=== PATIENT | female | born 1970 | race Caucasian/White ===

== ENCOUNTER → 2019-06-23 | Outpatient (CLI) | payer OTHER | END | disposition home or self-care (01) | LOC: PLD 13:06 → LAB SHORT 13:06 | DX: D04.61 Carcinoma in situ of skin of right upper limb, including shoulder (principal) | CPT/HCPCS: 88305 ==

== ENCOUNTER → 2020-05-30 | Outpatient (CLI) | payer OTHER | LOC: LAB SHORT 15:45 → PLD 15:45 | DX: N39.9 Disorder of urinary system, unspecified (principal) | CPT/HCPCS: 87077; 87086; 87186 ==

== ENCOUNTER → 2021-10-31 | Outpatient (CLI) | payer OTHER | END | disposition home or self-care (01) | LOC: PLD 12:17 → LAB SHORT 12:17 | DX: L81.8 Other specified disorders of pigmentation (principal) | CPT/HCPCS: 88305 ==

== ENCOUNTER 2024-04-20 12:19 | Day surgery (SDC) | payer OTHER ==
[~2024-04-20] VITALS: Ht 165.1 cm; Wt 89.4 kg
[~2024-04-20 12:19] MED LIST: Lactated Ringer's 1,000 ML IV ONE; Prozac40 MG PO; VALA500 PO; propofoL 50 ML IV ONE
[2024-04-20] MEDS ORDERED: Lactated Ringer's 1,000 ML IV ONE (14:26)
[2024-04-20 15:30] VITALS: BP 118/64
== END 2024-04-20 15:33 | disposition home or self-care (01) ==
LOC: ORSCSDS 12:19
PROVIDERS: Surgery
PROC: 0DJD8ZZ Inspection of Lower Intestinal Tract, Via Natural or Artificial Opening Endoscopic (ICD-10-PCS; principal; 2024-04-20 14:15)
DX: Z12.11 Encounter for screening for malignant neoplasm of colon (principal); K57.30 Diverticulosis of large intestine without perforation or abscess without bleeding; K64.8 Other hemorrhoids; F32.A Depression, unspecified; Z79.899 Other long term (current) drug therapy
CPT/HCPCS: J2704; J7120